=== PATIENT | male | born 1990 | race Caucasian/White ===

== ENCOUNTER 2020-12-18 18:54 | Emergency (ER) | payer SELFPAY ==
[~2020-12-18] VITALS: Ht 182.9 cm; Wt 190.9 kg
[2020-12-18 19:05] VITALS: Ht 182.9 cm; Wt 190.9 kg
[2020-12-18] MEDS ORDERED: LISINOPRIL40 MG PO (19:06)
[2020-12-18] MEDS ORDERED: LYRICA300 MG PO (19:06)
[2020-12-18] MEDS ORDERED: TRAZODONE HCL100 MG PO (19:07)
[2020-12-18] MEDS ORDERED: EFFEXOR XR150 MG PO (19:07)
[2020-12-18] MEDS ORDERED: MOBIC7.5 MG PO (19:07)
[2020-12-18 19:49] LABS: BASOPHILS 0.2 % (0-2); EOSINOPHILS 1.9 % (0-7); HEMATOCRIT 42.9 % (42.0-54.0); HEMOGLOBIN 14.5 g/dL (13.5-17.5); IMMATURE GRANULOCYTES 0.1 % (0-5); LYMPHOCYTE ABS# 2.34 10x3/uL (1.32-3.57); MCH 29.6 pg (26.0-34.0); MCHC 33.8 g/dL (31.0-37.0); MCV 87.6 fL (80.0-100.0); MEAN PLATELET VOLUME 10.4 fL (7.4-10.4); MONOCYTES 6.7 % (2-11); NEUTROPHIL ABS# 5.27 10x3/uL (1.78-5.38); NEUTROPHILS 63.1 % (40-80); PLATELET COUNT 347 10x3/uL (130-400); WBC 8.4 10x3/uL (4.8-10.8)
[2020-12-18 19:56] LABS: CALC OSMOLALITY 265 mosm/kg (275-300); CALCIUM 9.1 mg/dL (8.5-10.1); CARBON DIOXIDE 27.3 mmol/L (21.0-32.0); CHLORIDE - SERUM 100 mmol/L (98-107); CREATININE - SERUM 1.1 mg/dL (0.6-1.3); GLUCOSE 114 mg/dL (74-106); SODIUM 133 mmol/L (136-145); UREA NITROGEN 11 mg/dL (7-18); eGFR NON AFRICAN AMERICAN 82 mL/min (90-120)
[2020-12-18 20:03] LABS: APTT 31.1 SECONDS (22.8-39.4); INR 1.08 (0.85-1.17)
[2020-12-18 20:04] LABS: D-DIMER-QUANTITATIVE 0.31 ug/mLFEU (0.20-0.54)
[2020-12-18 20:13] LABS: ALBUMIN 3.4 g/dL (3.4-5.0); ALKALINE PHOSPHATASE 106 U/L (30-120); ALT (SGPT) 36 U/L (10-68); CKMB 1.4 U/L (0.0-3.6); CREATINE KINASE 333 UL (21-232); LIPASE 89 U/L (73-393); MAGNESIUM - SERUM 1.8 mg/dL (1.8-2.4); PROTEIN - SERUM 7.8 g/dL (6.4-8.2); TROPONIN-I < 0.017 ng/mL (0.000-0.060)
[2020-12-18] MEDS ORDERED: PROTONIX40 MG PO (21:55)
[2020-12-18 22:04] VITALS: BP 121/74
== END 2020-12-18 22:00 | disposition home or self-care (01) ==
LOC: D.ER 18:54
PROVIDERS: Family Medicine
DX: R07.9 Chest pain, unspecified (principal); K21.9 Gastro-esophageal reflux disease without esophagitis; I10 Essential (primary) hypertension